=== PATIENT | female | born 1980 | race Hispanic/Latino ===

== ENCOUNTER 2018-04-23 22:23 | Emergency (ER) | payer BC, SELFPAY ==
[2018-04-23 22:53] LABS: Bilirubin Small (Negative); Blood, Urine Large (Negative); Clarity CLOUDY (Clear); Glucose, Urine (Dipstick) Negative (Negative); Leukocyte Small (Negative); Nitrite Positive (Negative); Protein, Urine (Dipstick) 100 mg/dL (Neg-Trace); Specific Gravity, Urine 1.035 (1.002-1.036); pH, Urine 5.5 (5.0-9.0)
[2018-04-23 22:54] LABS: Pregnancy Test - Urine (BHCG) Negative (Negative); Pregu Control Background? CLEAR/WHITE (CLR/WHITE); Pregu Control Bar Appear? YES (CONTROL BAR); Specific Gravity 1.035 (1.002-1.036)
[2018-04-23 22:55] LABS: Bacteria/HPF Rare-Few HPF (None Seen)
[2018-04-23] MEDS ORDERED: Ondansetron ODT 8 MG TAB ONE (22:55)
[2018-04-23] MEDS ORDERED: Ketorolac Tromethamine 60 MG/2 ML VIAL ONE (22:55)
[2018-04-23 22:56] LABS: Pathc Cast-AUWi Flag 3.05 (0-2.49); Yeast-AUWi Flag 92.3 (0-25.0)
[2018-04-23 23:06] LABS: #Eosinphils 0.2 thou/uL (0.0-0.7); #Lymphocytes 1.9 thou/uL (1.20-3.40); #Monocytes 0.5 thou/uL (0.11-0.59); #Neutrophils 6.1 thou/uL (1.40-6.50); %Basophils 0.4 % (0.0-1.0); %Eosinophils 2.1 % (0.0-10.0); %Lymphocytes 21.5 % (21.0-51.0); %Monocytes 5.7 % (0.0-10.0); %Neutrophils 70.2 % (42.0-75.0); Hemoglobin 14.1 g/dL (12.0-16.0); Mean Corpuscular HGB CONC 34.3 g/dL (32.0-36.0); Mean Corpuscular Hemoglobin 31.8 pg (27.0-31.0); Mean Corpuscular Volume 92.7 fL (78.0-98.0); Mean Platelet Volume 8.1 fL (7.4-10.4); Platelet Count 314 thou/uL (130-400); RBC Distribution Width 11.5 % (11.5-14.5); Red Blood Cell (RBC) Count 4.44 mill/uL (4.20-5.40); White Blood Cell (WBC) Count 8.6 thou/uL (4.8-10.8)
[2018-04-23 23:13] LABS: Hyaline Casts/LPF 0-3 HYALINE CAST LPF (0-3 Hyaline); Other Casts/LPF None Seen LPF (0-3 Hyaline); RBC/HPF 0-3 HPF (0-3)
[2018-04-23 23:14] LABS: Yeast-All Forms None Seen HPF (None Seen)
[2018-04-23 23:25] LABS: ALT (SGPT) 13 U/L (8-55); AST (SGOT) 19 U/L (5-34); Albumin 4.9 g/dL (3.5-5.0); Alkaline Phosphatase 59 U/L (40-150); Anion Gap 14 mmol/L (10-20); BUN (Urea Nitrogen) 9 mg/dL (7.0-18.7); Bilirubin, Total 0.5 mg/dL (0.2-1.2); Calc. Creatinine Clearance 0 mL/min (70-130); Calcium 9.6 mg/dL (7.8-10.44); Carbon Dioxide 22 mmol/L (22-29); Chloride 106 mmol/L (98-107); Estimated GFR-MDRD 81; Globulin 3.1 g/dL (2.4-3.5); Glucose 95 mg/dL (70-105); Potassium 3.6 mmol/L (3.5-5.1); Sodium 138 mmol/L (136-145)
[2018-04-23] MEDS ORDERED: HYDROcodone/Acetaminophen 5/325 mg Tablet ONE (23:43)
[2018-04-23] MEDS ORDERED: Cephalexin 250 MG CAP ONE (23:44)
== END 2018-04-23 23:53 | disposition home or self-care (01) ==
LOC: ERS 22:23
DX: N12 Tubulo-interstitial nephritis, not specified as acute or chronic (principal); F41.9 Anxiety disorder, unspecified; G43.909 Migraine, unspecified, not intractable, without status migrainosus
CPT/HCPCS: 36415; 80053; 81003; 81015; 81025; 85025; 87086; 96372; J1885

== ENCOUNTER 2018-04-27 19:02 | Emergency (ER) | payer SELFPAY ==
[2018-04-27 20:11] LABS: Bilirubin Small (Negative); Blood, Urine Negative (Negative); Clarity CLEAR (Clear); Glucose, Urine (Dipstick) Negative (Negative); Leukocyte Trace (Negative); Nitrite Negative (Negative); Protein, Urine (Dipstick) Negative (Neg-Trace); Specific Gravity, Urine 1.024 (1.002-1.036)
[2018-04-27 20:13] LABS: Bacteria/HPF None Seen HPF (None Seen); Hyaline Casts/LPF 4-6 HYALINE CAST LPF (0-3 Hyaline); Pathc Cast-AUWi Flag 1.16 (0-2.49); WBC/HPF 0-3 HPF (0-3)
[2018-04-27] MEDS ORDERED: Ketorolac Tromethamine 30 MG/ML VIAL ONE (21:39)
== END 2018-04-27 21:52 | disposition home or self-care (01) ==
LOC: ERS 19:02
DX: N39.0 Urinary tract infection, site not specified (principal); M54.5 Low back pain; G43.909 Migraine, unspecified, not intractable, without status migrainosus; F41.9 Anxiety disorder, unspecified; Z79.899 Other long term (current) drug therapy
CPT/HCPCS: 81003; 81015; 96372; J1885

== ENCOUNTER 2018-12-21 23:42 | Emergency (ER) | payer SELFPAY ==
[2018-12-22] MEDS ORDERED: Acetaminophen 500 MG TAB ONE (00:18)
[2018-12-22] MEDS ORDERED: Ibuprofen 800 MG TAB ONE (00:18)
[2018-12-22 00:52] LABS: #Eosinphils 0.1 thou/uL (0.0-0.7); #Lymphocytes 1.4 thou/uL (1.20-3.40); #Monocytes 0.6 thou/uL (0.11-0.59); #Neutrophils 12.2 thou/uL (1.40-6.50); %Basophils 0.2 % (0.0-1.0); %Eosinophils 0.9 % (0.0-10.0); %Lymphocytes 9.6 % (21.0-51.0); %Monocytes 4.1 % (0.0-10.0); %Neutrophils 85.2 % (42.0-75.0); Hemoglobin 13.4 g/dL (12.0-16.0); Mean Corpuscular HGB CONC 34.3 g/dL (32.0-36.0); Mean Corpuscular Hemoglobin 31.5 pg (27.0-31.0); Platelet Count 255 thou/uL (130-400); RBC Distribution Width 11.8 % (11.5-14.5); Red Blood Cell (RBC) Count 4.24 mill/uL (4.20-5.40); White Blood Cell (WBC) Count 14.3 thou/uL (4.8-10.8)
[2018-12-22 01:14] LABS: ALT (SGPT) 18 U/L (8-55); AST (SGOT) 17 U/L (5-34); Albumin 4.4 g/dL (3.5-5.0); Alkaline Phosphatase 53 U/L (40-110); Anion Gap 10 mmol/L (10-20); BUN (Urea Nitrogen) 8 mg/dL (7.0-18.7); Bilirubin, Total 0.4 mg/dL (0.2-1.2); CK (CPK) 40 U/L (29-168); Calc. Creatinine Clearance 0 mL/min (70-130); Calcium 9.2 mg/dL (7.8-10.44); Carbon Dioxide 24 mmol/L (22-29); Chloride 105 mmol/L (98-107); Estimated GFR-MDRD Greater than 90; Globulin 2.6 g/dL (2.4-3.5); Glucose 92 mg/dL (70-105); Potassium 3.3 mmol/L (3.5-5.1); Sodium 136 mmol/L (136-145)
[2018-12-22 01:14] LABS: Bilirubin Negative (Negative); Blood, Urine Negative (Negative); Clarity Clear (Clear); Glucose, Urine (Dipstick) Normal (Negative); Leukocyte Negative Leu/uL (Negative); Nitrite Negative (Negative); Protein, Urine (Dipstick) Negative (Neg-Trace); Urobilinogen 3 mg/dL (Less than 2)
--- NOTE | 2018-12-27 00:03 | EKG ---
Test Reason : Blood Pressure : / mmHG Vent. Rate : 065 BPM Atrial Rate : 065 BPM P-R Int : 138 ms QRS Dur : 084 ms QT Int : 392 ms P-R-T Axes : 058 021 014 degrees QTc Int : 407 ms Normal sinus rhythm Normal ECG Confirmed by HALIMA MADERA M.D. ([id number]), scientific editor KATIE LIGHT ([id number]) on 12/27/2018 12:03:13 AM Referred By: Confirmed By:HALIMA MADERA M.D.
== END 2018-12-22 01:37 | disposition home or self-care (01) ==
LOC: ERS 23:42
DX: R53.83 Other fatigue (principal); M79.10 Myalgia, unspecified site; G43.909 Migraine, unspecified, not intractable, without status migrainosus; F41.9 Anxiety disorder, unspecified
CPT/HCPCS: 36415; 80053; 81003; 82550; 84484; 85025; 87081; 87430; 87804; 93005

== ENCOUNTER 2020-09-07 11:34 | Emergency (ER) | payer SELFPAY ==
[~2020-09-07 11:34] MED LIST: Iopamidol-370 76% 500 ML 1 ML ONE
[2020-09-07 12:14] LABS: #Eosinphils 0.1 thou/uL (0.0-0.7); #Lymphocytes 1.3 thou/uL (1.20-3.40); #Monocytes 0.4 thou/uL (0.11-0.59); #Neutrophils 4.3 thou/uL (1.40-6.50); %Basophils 0.5 % (0.0-1.0); %Eosinophils 1.6 % (0.0-10.0); %Lymphocytes 20.6 % (21.0-51.0); %Monocytes 6.3 % (0.0-10.0); %Neutrophils 71.1 % (42.0-75.0); Hemoglobin 13.1 g/dL (12.0-16.0); Mean Corpuscular HGB CONC 33.2 g/dL (32.0-36.0); Mean Corpuscular Hemoglobin 31.1 pg (27.0-31.0); Mean Corpuscular Volume 93.8 fL (78.0-98.0); Mean Platelet Volume 8.1 fL (7.4-10.4); Platelet Count 305 thou/uL (130-400); RBC Distribution Width 11.6 % (11.5-14.5); Red Blood Cell (RBC) Count 4.21 mill/uL (4.20-5.40); White Blood Cell (WBC) Count 6.1 thou/uL (4.8-10.8)
[2020-09-07 12:33] LABS: BHCG - Serum Negative (NEGATIVE); Pregs Control Background? CLEAR/WHITE (CLR/WHITE); Pregs Control Bar Appear? YES (CONTROL BAR)
[2020-09-07 12:50] LABS: ALT (SGPT) 18 U/L (8-55); AST (SGOT) 20 U/L (5-34); Albumin 4.5 g/dL (3.5-5.0); Alkaline Phosphatase 54 U/L (40-110); Anion Gap 11 mmol/L (10-20); BUN (Urea Nitrogen) 6 mg/dL (7.0-18.7); Bilirubin, Total 0.6 mg/dL (0.2-1.2); Calc. Creatinine Clearance 0 mL/min (70-130); Calcium 9.5 mg/dL (7.8-10.44); Carbon Dioxide 25 mmol/L (22-29); Chloride 104 mmol/L (98-107); Globulin 2.9 g/dL (2.4-3.5); Glucose 98 mg/dL (70-105); Potassium 3.8 mmol/L (3.5-5.1); Protein, Total 7.4 g/dL (6.0-8.3); Sodium 136 mmol/L (136-145)
[2020-09-07 13:23] LABS: Bilirubin Negative (Negative); Blood, Urine Negative (Negative); Clarity Clear (Clear); Glucose, Urine (Dipstick) Normal (Negative); Ketone, Urine Trace mg/dL (Negative); Leukocyte Negative Leu/uL (Negative); Nitrite Negative (Negative); Protein, Urine (Dipstick) Negative (Neg-Trace); Urobilinogen Normal mg/dL (Less than 2); pH, Urine 5.5 (5.0-9.0)
[2020-09-07] MEDS ORDERED: Ondansetron PF 4 MG/2 ML Vial ONE (14:52)
[2020-09-07] MEDS ORDERED: Ketorolac Tromethamine 30 MG/ML VIAL ONE (14:52)
[2020-09-07] MEDS ORDERED: Fentanyl 100 MCG/2 ML VIAL ONE (16:02)
[2020-09-07] MEDS ORDERED: diphenhydrAMINE 12.5 MG/5 ML UDCUP ONE (16:02)
[2020-09-07] MEDS ORDERED: diphenhydrAMINE 50 MG/ML VIAL ONE (16:03)
== END 2020-09-07 17:52 | disposition home or self-care (01) ==
LOC: ERS 11:34
DX: R10.31 Right lower quadrant pain (principal); G43.909 Migraine, unspecified, not intractable, without status migrainosus
CPT/HCPCS: 36415; 74177; 76856; 80053; 81003; 84703; 85025; 87086; 94760; 96374; 96375; J1200; J1885; J2405; J3010; Q0163

== ENCOUNTER 2024-04-09 20:44 | Emergency (ER) | payer BC ==
[2024-04-09] MEDS ORDERED: fentaNYL 50 mcg/mL 1 mL Vial ONE (23:17)
[2024-04-09] MEDS ORDERED: Hydrocortisone 1% Cream 30 GM TUBE TOP SCH (23:30)
[2024-04-09] MEDS ORDERED: Lidocaine-Prilocaine 2.5% Cream 5 GM TUBE TOP SCH (23:45)
== END 2024-04-10 00:16 | disposition home or self-care (01) ==
LOC: ERS 20:44
DX: K64.5 Perianal venous thrombosis (principal)
CPT/HCPCS: J3010

== ENCOUNTER 2024-10-08 18:35 | Emergency (ER) | payer BC, SELFPAY ==
[2024-10-08] MEDS ORDERED: Famotidine 20 MG TAB ONE (19:05)
== END 2024-10-08 19:11 | disposition home or self-care (01) ==
LOC: ERS 18:35
DX: T63.441A Toxic effect of venom of bees, accidental (unintentional), initial encounter (principal)
CPT/HCPCS: 99282